=== PATIENT | female | born 1970 | race Caucasian/White ===

== ENCOUNTER → 2019-02-12 | Outpatient (CLI) | payer OTHER ==
[~2019-02-12] MED LIST: AMBIEN5 MG PO; CIPRO250 MG PO; EXCEDRIN MIGRAI1 TA1 PO; FOLGARD TABLET1 EACH PO; MAXALT10 MG PO; MOTRIN400 MG PO; VICODIN 5/500 505 MG PO; VICODIN ES 7501 TA1 PO; VICODIN ES 7501 TAB PO; VIT C-BIOFLAVO1 EACH PO; Zofran4 MG PO
== END | disposition home or self-care (01) ==
LOC: RAD 15:48
DX: M79.89 Other specified soft tissue disorders (principal)

== ENCOUNTER → 2019-03-29 | Day surgery (SDC) | payer OTHER ==
[~2019-03-29] MED LIST changes: +CARAFATE1 G1 PO; +PREVACID15 M1 PO; +RANITIDINE75 MG PO
--- NOTE | ~2019-03-29 | O ---
[place], [place] OPERATIVE NOTE [id number] UNIT #: [id number] ROOM: DOCTOR: CAMILO ROSSI,JEFF BIRTHDATE: [birth year] DOS: 03/29/2019 GASTROENDOSCOPIC REPORT Patient has presented with chief complaint of epigastric distress, dyspepsia, undergoing investigation, been asked for assessment of the patient with endoscopic evaluation. PROCEDURE: Today's procedure part of investigation is panendoscopy plus biopsy. PREMEDICATION: Propofol. SCOPE: Olympus forward-viewing gastroscope Q10 video. REPORT: After putting the patient in left lateral position and application of lubricant to the scope, the scope was introduced. Thereafter, under direct visualization, advanced through the length of esophagus without difficulty. Small hiatal hernia was noticed. Gastric pouch was entered. Gastritis was seen. Antral biopsy obtained. Duodenal bulb, second and third part within normal limit. The air was suctioned out. Antral biopsy obtained. The patient extubated, tolerated the procedure well. IMPRESSION: Gastritis, hiatal hernia. PLAN AND DISCUSSION: Omeprazole 40 mg 1 every day, antireflux measures with elevation of the head of the bed 6 inch. Gaviscon as antacid of choice. Follow up as outpatient routinely with you in office and p.r.n. in [facility] Clinic. Thank you very much indeed. JEFF PAGE MD CM:OPRECORD:OPERATIVE NOTE [id number] JEFF PAGE MD 04/10/19 [id number]
[2019-03-29 13:50] VITALS: BP 122/65
[2019-03-29 15:29] VITALS: BP 94/54
[2019-03-29 15:44] VITALS: BP 105/62
[2019-03-29 15:59] VITALS: BP 103/70
== END ==
LOC: SDC 03-26 14:45
DX: R10.13 Epigastric pain (principal); K29.50 Unspecified chronic gastritis without bleeding; K44.9 Diaphragmatic hernia without obstruction or gangrene; K21.9 Gastro-esophageal reflux disease without esophagitis; G43.909 Migraine, unspecified, not intractable, without status migrainosus; Z87.891 Personal history of nicotine dependence

== ENCOUNTER → 2019-04-10 | Outpatient (CLI) | payer OTHER | END | disposition home or self-care (01) | LOC: MRI 09:35 | DX: M79.89 Other specified soft tissue disorders (principal) ==

== ENCOUNTER → 2020-03-10 | Outpatient (CLI) | payer OTHER | END | disposition home or self-care (01) | LOC: MAMMO 16:07 | PROVIDERS: ATTEND Internal Medicine | DX: Z12.31 Encounter for screening mammogram for malignant neoplasm of breast (principal) ==

== ENCOUNTER → 2021-11-15 | Outpatient (CLI) | payer BC | END | disposition home or self-care (01) | LOC: MAMMO 07:30 | PROVIDERS: ATTEND Internal Medicine | DX: Z12.31 Encounter for screening mammogram for malignant neoplasm of breast (principal) ==

== ENCOUNTER → 2023-01-02 | Outpatient (CLI) | payer BC | END | disposition home or self-care (01) | LOC: MAMMO 01:15 | PROVIDERS: ATTEND Internal Medicine | DX: Z12.31 Encounter for screening mammogram for malignant neoplasm of breast (principal) ==

== ENCOUNTER → 2023-04-11 | Outpatient (CLI) | payer BC | END | disposition home or self-care (01) | LOC: US 03-31 08:30 | PROVIDERS: ATTEND Internal Medicine | DX: K76.0 Fatty (change of) liver, not elsewhere classified (principal); K21.9 Gastro-esophageal reflux disease without esophagitis ==

== ENCOUNTER → 2023-05-04 | Outpatient (CLI) | payer BC | END | disposition home or self-care (01) | LOC: NM 01:12 | PROVIDERS: ATTEND Internal Medicine | DX: K82.8 Other specified diseases of gallbladder (principal) ==

== ENCOUNTER → 2024-07-30 | Outpatient (CLI) | payer BC | END | disposition home or self-care (01) | LOC: MAMMO 14:14 | PROVIDERS: ATTEND Internal Medicine | DX: Z12.31 Encounter for screening mammogram for malignant neoplasm of breast (principal) ==